=== PATIENT | female | born 1960 | race African-American/Black ===

== ENCOUNTER 2020-10-28 18:00 | Emergency (ER) | payer OTHER ==
[~2020-10-28] VITALS: Ht 157.5 cm; Wt 72.1 kg
[2020-10-28] MEDS ORDERED: VERELAN180 MG (18:29)
[2020-10-28] MEDS ORDERED: LOSARTAN POTAS100 MG (18:29)
[2020-10-28] MEDS ORDERED: FOLIC ACID1 MG (18:30)
[2020-10-28] MEDS ORDERED: ATORVASTATIN CA10 MG (18:30)
[2020-10-28] MEDS ORDERED: HYDROCHLORIC AC25 ML (18:31)
== END 2020-10-28 19:22 | disposition home or self-care (01) ==
LOC: ER 18:00
DX: H92.02 Otalgia, left ear (principal)

== ENCOUNTER 2022-01-01 08:41 | Outpatient (CLI) | payer OTHER ==
[~2022-01-01 08:41] MED LIST: ATORVASTATIN CA10 MG; FOLIC ACID1 MG; HYDROCHLORIC AC25 ML; LOSARTAN POTAS100 MG; VERELAN180 MG
== END 2022-01-01 08:47 | disposition home or self-care (01) ==
LOC: SONOGRAMA 08:41
PROVIDERS: ATTEND Pathology Anatomic Pathology & Clinical Pathology
DX: E04.1 Nontoxic single thyroid nodule (principal)

== ENCOUNTER 2022-01-01 12:04 | Outpatient (CLI) | payer OTHER | END 2022-01-01 12:12 | disposition home or self-care (01) | LOC: TOM 12:04 | PROVIDERS: ATTEND General Practice | DX: J33.0 Polyp of nasal cavity (principal) ==

== ENCOUNTER 2022-04-03 08:24 | Day surgery (SDC) | payer OTHER ==
[~2022-04-03] VITALS: Ht 157.5 cm; Wt 71.7 kg
[~2022-04-03 08:24] MED LIST changes: +THIAZIDE PO
[2022-04-03] MEDS ORDERED: CEPHALEXIN500 MG PO (16:39)
[2022-04-03] MEDS ORDERED: NASAL MIST126 ML NASAL (16:39)
[2022-04-04] MEDS ORDERED: LOSARTAN-HCTZ1 EAC1 (01:15)
== END 2022-04-03 18:50 | disposition home or self-care (01) ==
LOC: CIR.AMB 08:24
PROVIDERS: ATTEND Otolaryngology Otology & Neurotology
DX: J32.8 Other chronic sinusitis (principal); J32.4 Chronic pansinusitis; J33.0 Polyp of nasal cavity; Z20.822 Contact with and (suspected) exposure to COVID-19; Z88.2 Allergy status to sulfonamides; I10 Essential (primary) hypertension; J45.909 Unspecified asthma, uncomplicated; Z71.6 Tobacco abuse counseling; F17.210 Nicotine dependence, cigarettes, uncomplicated

== ENCOUNTER 2022-04-04 01:11 | Inpatient (IN) | payer OTHER ==
[~2022-04-04] VITALS: Ht 157.5 cm; Wt 71.2 kg
[~2022-04-04 01:11] MED LIST changes: +CEPHALEXIN500 MG PO; +NASAL MIST126 ML NASAL
[2022-04-04] MEDS ORDERED: LOSARTAN-HCTZ1 EAC1 (01:15)
== END 2022-04-05 16:22 | disposition home or self-care (01) | DRG 921 ==
LOC: ER 01:11 → MEDI 09:58
PROVIDERS: ADMIT Internal Medicine; ATTEND Internal Medicine
DX: M96.89 Other intraoperative and postprocedural complications and disorders of the musculoskeletal system (principal); E87.6 Hypokalemia; Z20.822 Contact with and (suspected) exposure to COVID-19